=== PATIENT | female | born 1965 | race American Indian/Alaskan Native ===

== ENCOUNTER 2016-11-15 11:00 | Outpatient (CLI) | payer BC ==
--- NOTE | 2016-11-15 11:48 | Mammography Report ---
Screening mammogram: Routine views are compared to prior studies dating back to 2015. The patient has a heterogeneously dense fibroglandular pattern with areas of focal fibroglandular densities. These findings in general are unchanged over the past 2 years. Of note however is a relatively well-circumscribed right breast asymmetry just below the nipple which appears to have enlarged over the past 2 years. It currently measures approximately 17 mm in size. The findings otherwise appear generally unremarkable bilaterally. CAD used. Impression: Enlarging right breast density. Recommendation: Spot compression imaging of the right breast and ultrasound as needed. BI-RADS CATEGORY: 0 = Needs additional imaging evaluation ACR BI-RADS MAMMOGRAPHIC CODES: 0 = Needs additional imaging evaluation; 1 = Negative; 2 = Benign; 3 = Probably benign; 4 = Suspicious; 5 = Malignant; 6 = Known biopsy-proven malignancy COMMENT: 1. Dense breast tissue, i.e., adenosis, fibrocystic changes, etc., may obscure an underlying neoplasm. 2. Approximately 10% of cancers are not detected with mammography. 3. A negative mammography report should not delay biopsy if a clinically suspicious mass is present.
== END 2016-11-15 11:01 | disposition home or self-care (01) ==
LOC: SPVWC 11:00
PROVIDERS: ATTEND Internal Medicine
DX: Z12.31 Encounter for screening mammogram for malignant neoplasm of breast (principal)
CPT/HCPCS: 77067; G0202

== ENCOUNTER 2017-12-02 09:15 | Outpatient (CLI) | payer OTHER ==
--- NOTE | 2017-12-02 15:12 | Mammography Report ---
BILATERAL DIGITAL DIAGNOSTIC MAMMOGRAM with CAD and RIGHT BREAST ULTRASOUND: 12/02/17 09:15:00 CLINICAL: Abnormal mammogram. COMPARISON:11/15/16 screening FINDINGS: The breasts are heterogeneously dense, which may obscure small masses.An oval circumscribed right breast mass at approximately 6 o'clock 4 cm from the nipple measures 1.7 cm and correlates with the previously described asymmetry on the mammogram. No other mass. No architectural distortion or suspicious calcifications. Ultrasound of the right breast demonstrated an oval relatively smooth solid heterogeneous hypoechoic mass at 7 o'clock 4 cm from the nipple. It measures 1.6 x 1.0 x 2.3 cm and correlates with the mammographic mass. IMPRESSION: A solid 1.6 cm right breast mass at 7 o'clock. Recommend ultrasound guided needle core biopsy to exclude malignancy. BI-RADS CATEGORY: 4A--Mildly Suspicious I discussed the findings and the recommendation for needle core biopsy of the right breast with the patient at the time of the examination. ACR BI-RADS MAMMOGRAPHIC CODES: 0 = Needs additional imaging evaluation; 1 = Negative; 2 = Benign; 3 = Probably benign; 4 = Suspicious; 5 = Malignant; 6 = Known biopsy-proven malignancy COMMENT: 1. Dense breast tissue, i.e., adenosis, fibrocystic changes, etc., may obscure an underlying neoplasm. 2. Approximately 10% of cancers are not detected with mammography. 3. A negative mammography report should not delay biopsy if a clinically suspicious mass is present. COMMENT: Patient follow-up letters are generated via our [employer] application.
== END 2017-12-02 09:16 | disposition home or self-care (01) ==
LOC: SPVWC 09:15
PROVIDERS: ATTEND Internal Medicine
DX: N63.10 Unspecified lump in the right breast, unspecified quadrant (principal)
CPT/HCPCS: 77066

== ENCOUNTER 2017-12-16 09:31 | Outpatient (CLI) | payer OTHER ==
--- NOTE | 2017-12-16 11:18 | History and Physical Report ---
History of Present Illness Date of examination: 12/16/17 Chief complaint: rt breast mass Medications and Allergies Allergies Allergy/AdvReac Type Severity Reaction Status Date / Time No Known Allergies Allergy Unverified 06/07/17 12:35
--- NOTE | 2017-12-16 11:18 | Ultrasound Report ---
Ultrasound-guided right breast biopsy, marker placement, 2 view mammogram: There is a hypoechoic mass in the 7:00 location. The skin was cleansed, draped and 1% lidocaine used for local anesthesia. A lateral approach was utilized under ultrasound guidance. A 13-gauge guide was introduced through which a 14-gauge Bard biopsy spring loaded device was used to take several specimens under ultrasound guidance. A marker was placed. The entrance site was bandaged. Two-view mammogram confirmed positioning of the marker in the mammographically identified nodule. There no complications of the procedure. The patient was given followup instructions and discharged.
--- NOTE | 2017-12-16 11:20 | Procedure Note ---
Date of procedure: 12/16/17 Pre-op diagnosis: rt breast mass Post-op diagnosis: same Procedure: u/s guided rt. breast bx Findings: solid tissue Anesthesia: local Surgeon: FABIEN DOBSON Estimated blood loss: none Pathology: list (rt breast tissue) Specimen disposition: to lab Condition: stable Disposition: same day
== END 2017-12-16 09:32 | disposition home or self-care (01) ==
LOC: SPVWC 09:31
PROVIDERS: ATTEND Internal Medicine
DX: D24.1 Benign neoplasm of right breast (principal)
CPT/HCPCS: 88305

== ENCOUNTER 2018-12-04 08:24 | Outpatient (CLI) | payer OTHER ==
--- NOTE | 2018-12-04 09:39 | Mammography Report ---
DIGITAL SCREENING MAMMOGRAM WITH CAD INDICATION: Routine screening mammography. 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 TECHNIQUE: Digital bilateral 2D mammography was obtained in the craniocaudal and mediolateral obliq ue projections. This examination was interpreted with the benefit of Computer-Aided Detection analysi s. COMPARISON: 12/02/2017 FINDINGS: Breast Density: The breasts are heterogeneously dense, which may obscure small masses. There is no evidence of dominant mass, suspicious calcifications or architectural distortion in eith er breast. Stable right lower outer low-density circumscribed mass with a biopsy clip. IMPRESSION: BI-RADS Category 2: Benign. No mammographic evidence of malignancy. Recommend routine screening ma mmography in one year. A "normal" or negative report should not discourage follow up or biopsy of a clinically significant f inding. A written summary of these findings will be mailed to the patient. The patient will be entered into a mammography reporting system which will generate a reminder letter for the patient's next appointmen t at the appropriate interval. The [employer] recommends yearly mammograms starting at age 40 and continuing as l young as a woman is in good health. Breast MRI is recommended for women with an approximate 20-25% or greater lifetime risk of breast cancer, including women with a strong family history of breast or ova jt cancer or who have been treated for Hodgkin's disease. Signer Name: Addy Maki MD Signed: 12/04/2018 9:35 AM Workstation Name: [id number]
== END 2018-12-04 08:25 | disposition home or self-care (01) ==
LOC: SPVWC 08:24
PROVIDERS: ATTEND Internal Medicine
DX: Z12.31 Encounter for screening mammogram for malignant neoplasm of breast (principal)
CPT/HCPCS: 77067